=== PATIENT | female | born 1995 | race African-American/Black ===

== ENCOUNTER → 2021-12-03 18:41 | Observation (INO) ==
[2021-12-03 17:32] LABS: Bacteria,Urine Few per hpf (None-Few); Bilirubin,Urine Negative (Negative); Blood,Urine Negative (Negative); Clarity,Urine Clear (Clear); Color,Urine Light-Yellow (Yellow); Glucose,Urine (UA) Normal (Normal); Ketones,Urine Negative (Negative); Leukocyte Esterase,Urine Large (Negative); Nitrite,Urine Negative (Negative); Protein,Urine Negative (Neg-Trace); Specific Gravity,Urine 1.006 (1.010-1.025); Squamous Epithelial Cell,Urine Few per hpf (None-Few); Urobilinogen,Urine Normal (Normal); WBC,Urine 15-30 per hpf (0-3)
== END | disposition home or self-care (01) ==
LOC: 1NENULAB
PROVIDERS: ADMIT Advanced Practice Midwife; ATTEND Advanced Practice Midwife

== ENCOUNTER 2022-01-24 05:04 | Inpatient (IN) ==
[2022-01-24] MEDS ORDERED: Famotidine 20 MG/2 ML VIAL IVP ONE (05:57)
[2022-01-24] MEDS ORDERED: Metoclopramide 10 MG/2 ML VIAL IVP ONE (05:57)
[2022-01-24] MEDS ORDERED: CeFAZolin 2,000 MG/120 ML BAG IVPB ONE (05:57)
[2022-01-24] MEDS ORDERED: Ringers Solution, Lactated 1,000 ML IVC SCH ×2 (06:00→12:52)
[2022-01-24 06:12] LABS: Basophils % 0.3 %; Eosinophils # 0.1 K/mcL (0.0-0.6); Eosinophils % 0.8 %; Hematocrit 32.8 % (35.3-44.9); Hemoglobin 10.2 g/dL (11.5-15.4); Immature Granulocytes % 0.6 % (0-4); Lymphocytes # 3.2 K/mcL (0.6-4.6); Lymphocytes % 37.3 %; Mean Corpuscular HGB Conc 31.1 g/dL (31.6-35.5); Mean Corpuscular Hemoglobin 23.9 pg (28.0-33.3); Mean Platelet Volume 10.9 fL (9.4-12.4); Monocytes # 0.9 K/mcL (0.0-1.3); Monocytes % 10.1 %; Neutrophils # 4.4 K/mcL (1.6-8.9); Platelet Count 220 K/mcL (140-400); Red Blood Count 4.26 M/mcL (3.82-4.97); Red Cell Distribution Width 20.8 % (11.5-14.5); Segmented Neutrophils % 50.9 %; White Blood Count 8.7 K/mcL (4.3-11.1)
[2022-01-24] MEDS ORDERED: Oxytocin 30 UNIT/503 ML BAG IVC ONE (07:17)
[2022-01-24] MEDS ORDERED: Ondansetron 4 MG/2 ML VIAL ONE (07:39)
[2022-01-24] MEDS ORDERED: *HR* Morphine Sulfate/PF 10 MG/10 ML AMPUL ONE (07:40)
[2022-01-24] MEDS ORDERED: *HR* FentaNYL (PF) 100 MCG/2 ML VIAL ONE (07:40)
[2022-01-24] MEDS ORDERED: Acetaminophen IV 1,000 MG/100 ML BAG IVPB ONE (07:41)
[2022-01-24] MEDS ORDERED: Ketorolac 30 MG/ML VIAL ONE (09:36)
[2022-01-24 10:25] LABS: Amphetamine Screen,Urine Negative ng/mL (Cutoff=1000); Barbiturate Screen,Urine Negative ng/mL (Cutoff=200); Benzodiazepines Screen,Urine Negative ng/mL (Cutoff=200); Cannabinoid Screen,Urine Negative ng/mL (Cutoff = 50); Cocaine Screen,Urine Negative ng/mL (Cutoff= 300); Opiate Screen,Urine Negative ng/mL (Cutoff=300); Phencyclidine Screen,Urine Negative ng/mL (Cutoff=25)
[2022-01-24] MEDS ORDERED: *HR* Dextrose 50 % in Water (Syg) 50 ML SYRINGE IVP PRN (12:52)
[2022-01-24] MEDS ORDERED: D5% in Water 1,000 ML IVC PRN (12:52)
[2022-01-24] MEDS ORDERED: Insulin LISPRO 300 UNITS/3 ML VIAL SUBQ SCH (12:52)
[2022-01-24] MEDS ORDERED: *HR* OxyCODONE Immed Rel 5 MG TABLET PO PRN (12:52)
[2022-01-24] MEDS ORDERED: Oxytocin 30 UNIT/503 ML BAG IVC SCH (12:52)
[2022-01-24] MEDS ORDERED: Metoclopramide 10 MG/2 ML VIAL IVP PRN (12:52)
[2022-01-24] MEDS ORDERED: OXYTOCIN/RINGERS LACTATE 10 UNIT/166.6 ML BAG IVC ONE (12:52)
[2022-01-24] MEDS ORDERED: Ondansetron 4 MG/2 ML VIAL IVP PRN (12:52)
[2022-01-24] MEDS ORDERED: Dextrose Gel 15 GM/37.5 ML TUBE PO PRN ×2 (12:52)
[2022-01-24] MEDS ORDERED: Simethicone 80 MG TAB.CHEW PO PRN (12:52)
[2022-01-24] MEDS: Ibuprofen 600 MG TABLET PO SCH ×2 (18:37→20:31)
[2022-01-24] MEDS: Acetaminophen 325 MG TABLET PO SCH ×2 (18:38→20:31)
[2022-01-25] MEDS: Ibuprofen 600 MG TABLET PO SCH ×2 (04:55→17:52)
[2022-01-25] MEDS: Acetaminophen 325 MG TABLET PO SCH ×2 (04:55→17:52)
[2022-01-25 07:41] VITALS: TEMP 97.6
[2022-01-25] MEDS: Prenatal Vit/FA 1 EACH TABLET PO SCH (09:13)
[2022-01-25 23:30] VITALS: PULSE 61; O2SAT 98
[2022-01-26] MEDS: Acetaminophen 325 MG TABLET PO SCH ×2 (00:24→06:05)
[2022-01-26] MEDS: Ibuprofen 600 MG TABLET PO SCH ×2 (00:24→06:05)
[2022-01-26 07:34] VITALS: BP 129/77
[2022-01-26] MEDS ORDERED: Etonogestrel 68 MG IMPLANT IL ONE (09:09)
[2022-01-26] MEDS ORDERED: Lidocaine -MPF 1% 5 ML AMPUL INFILT ONE (09:10)
[2022-01-26] MEDS: Prenatal Vit/FA 1 EACH TABLET PO SCH (10:14)
== END 2022-01-26 12:01 | disposition home or self-care (01) | DRG 540 ==
LOC: 1NENULAB 05:04 → 1NENUOBS 12:19
PROVIDERS: ADMIT Obstetrics & Gynecology; ATTEND Obstetrics & Gynecology